=== PATIENT | female | born 1960 | race Caucasian/White ===

== ENCOUNTER 2018-05-01 07:07 | Emergency (ER) | payer OTHER ==
[~2018-05-01] VITALS: Ht 167.6 cm; Wt 101.6 kg
[2018-05-01] MEDS ORDERED: COREG6.25 MG PO (07:27)
[2018-05-01] MEDS ORDERED: TRAMADOL 50 MG50 MG PO ×2 (07:28→09:54)
[2018-05-01] MEDS ORDERED: LISINOPRIL40 MG PO (07:28)
[2018-05-01] MEDS ORDERED: SYNTHROID88 MCG PO (07:28)
[2018-05-01] MEDS ORDERED: LOVASTATIN 20 M20 MG PO (07:28)
[2018-05-01 08:08] LABS: URINE BILIRUBIN NEGATIVE (Negative); URINE BLOOD TRACE (Negative); URINE CLARITY CLEAR; URINE COLOR YELLOW; URINE GLUCOSE-RANDOM* NEGATIVE (Negative); URINE KETONES 1+ (Negative); URINE LEUKOCYTES-REFLEX NEGATIVE (Negative); URINE NITRITE-REFLEX NEGATIVE (Negative); URINE PROTEIN (DIPSTICK) NEGATIVE (Negative); URINE SPECIFIC GRAVITY 1.015 (1.005-1.035); URINE UROBILINOGEN 0.2 E.U./dl (0.2-1.0)
[2018-05-01 08:44] LABS: ABSOLUTE NEUTROPHILS 4.3 thou/uL (1.4-8.2); BASOPHILS 0.8 % (0.0-2.0); EOSINOPHILS 1.3 % (0.0-3.0); HEMATOCRIT 37.3 % (37.0-47.0); HEMOGLOBIN 12.4 gm/dL (12.0-15.0); LYMPHOCYTES 27.6 % (24.0-44.0); MCH 29.8 pg (26.0-34.0); MCHC 33.3 g/dL (28.0-37.0); MCV 89.3 fL (80.0-100.0); PLATELET COUNT 269 thou/uL (150-400); POLYS 62.3 % (36.0-66.0); RBC 4.18 mil/uL (4.20-5.00); RDW 14.9 % (10.5-14.5)
[2018-05-01 08:52] LABS: ANION GAP 8 mmol/L (7-16); BUN 13 mg/dL (7-18); CALCIUM 9.2 mg/dL (8.5-10.1); CHLORIDE 101 mmol/L (98-107); CO2 28 mmol/L (21-32); CREATININE 0.8 mg/dL (0.6-1.0); GLUCOSE 114 mg/dL (74-106); POTASSIUM 3.7 mmol/L (3.5-5.1); SODIUM 137 mmol/L (136-145)
[2018-05-01 09:01] LABS: ALBUMIN 3.7 g/dL (3.4-5.0); LIPASE 75 U/L (73-393); SGOT 29 U/L (15-37); SGPT 39 U/L (30-65); TOTAL BILIRUBIN 0.3 mg/dL (<0.1-1.0); TOTAL PROTEIN 7.3 g/dL (6.4-8.2); TROPONIN-I <0.06 ng/mL (<0.06)
[2018-05-01] MEDS ORDERED: NAPROSYN500 MG PO (09:54)
[2018-05-01] MEDS ORDERED: ZOFRAN ODT4 MG DISSOLVE (09:54)
[2018-05-01] MEDS ORDERED: PEPCID20 MG PO (09:54)
[2018-05-01 10:13] VITALS: BP 177/80
--- NOTE | 2018-05-01 11:02 | EKG ---
[place] [address] [facility] [place] [address] ELECTROCARDIOGRAM REPORT Name: JANELLE BOLANOS [id number] ������������������ Admission: 05/01/18 ������������������ Attend Phys: Discharge: 05/01/18 ������������������ Date of : 56 Report #: [id number] ����������������������������������������������������������������� [id number] THIS REPORT FOR: //name// [facility] ED Test Date: 2018-05-01 Test Time: 08:38:36 Pat Name: JANELLE BOLANOS Department: Room: Gender: F Bill Peddler: YASH : 1960 Requested By: Mata Rivera Order Number: [id number] MD: Rick Jones Measurements Intervals [place] Rate: 55 P: 30 AL: 180 QRS: 4 QRSD: 101 T: 29 QT: 430 QTc: 412 Interpretive Statements Sinus rhythm Atrial premature complexes Compared to ECG 05/18/2008 06:55:18 T-wave abnormality no longer present Electronically Signed On 05-01-2018 11:02:31 CDT by Rick Jones [email or web address] ��������������������������������������������� <ELECTRONICALLY SIGNED> ���������������������������������������� By: Rick Jones MD ��������������������������������������������� 05/01/18 1102 [id number] Rick Jones MD /RADHA
== END 2018-05-01 10:14 | disposition home or self-care (01) ==
LOC: ER 07:07
PROVIDERS: Emergency Medicine
DX: R10.31 Right lower quadrant pain (principal); R10.32 Left lower quadrant pain; R11.0 Nausea; E03.9 Hypothyroidism, unspecified; E78.00 Pure hypercholesterolemia, unspecified; Z90.710 Acquired absence of both cervix and uterus; Z95.5 Presence of coronary angioplasty implant and graft; F17.210 Nicotine dependence, cigarettes, uncomplicated; Z88.5 Allergy status to narcotic agent; Z91.041 Radiographic dye allergy status

== ENCOUNTER 2020-04-06 21:23 | Emergency (ER) | payer OTHER ==
[~2020-04-06] VITALS: Ht 167.6 cm; Wt 99.8 kg
[~2020-04-06 21:23] MED LIST: COREG6.25 MG PO; LISINOPRIL40 MG PO; LOVASTATIN 20 M20 MG PO; NAPROSYN500 MG PO; PEPCID20 MG PO; SYNTHROID88 MCG PO; TRAMADOL 50 MG50 MG PO; ZOFRAN ODT4 MG DISSOLVE
[2020-04-06 22:07] LABS: URINE BILIRUBIN NEGATIVE (Negative); URINE BLOOD 3+ (Negative); URINE CLARITY SL CLOUDY; URINE COLOR YELLOW; URINE GLUCOSE-RANDOM* NEGATIVE (Negative); URINE KETONES NEGATIVE (Negative); URINE NITRITE-REFLEX NEGATIVE (Negative); URINE PROTEIN (DIPSTICK) 3+ (Negative); URINE SPECIFIC GRAVITY 1.025 (1.005-1.035)
[2020-04-06 22:10] LABS: URINE LEUKOCYTES-REFLEX 1+ (Negative)
[2020-04-06 22:19] LABS: CASTS None Seen /LPF (None Seen); MUCUS None Seen strn/LPF (None Seen); SQUAMOUS None Seen /LPF (0-3); TRANSITIONAL EPITHEL CELL 4-10 Moderate /LPF (None Seen)
[2020-04-06 22:20] LABS: BACTERIA-REFLEX 1-9 Few /HPF (None Seen); CRYSTALS None Seen /LPF (None Seen); URINE RBC >20 Many /HPF (0-2)
[2020-04-06] MEDS ORDERED: TYLENOL325 M1 PO (22:39)
[2020-04-06] MEDS ORDERED: PYRIDIUM200 MG PO (22:39)
[2020-04-06] MEDS ORDERED: MACROBID 100 M100 M1 PO (22:39)
[2020-04-06 22:46] VITALS: BP 148/70
== END 2020-04-06 22:47 | disposition home or self-care (01) ==
LOC: ER 21:23
PROVIDERS: Nurse Practitioner
DX: N30.90 Cystitis, unspecified without hematuria (principal); F17.210 Nicotine dependence, cigarettes, uncomplicated; E03.9 Hypothyroidism, unspecified; I10 Essential (primary) hypertension; E78.5 Hyperlipidemia, unspecified; Z90.710 Acquired absence of both cervix and uterus; Z79.899 Other long term (current) drug therapy; Z88.5 Allergy status to narcotic agent; Z91.041 Radiographic dye allergy status